=== PATIENT | female | born 1975 | race Two or more races ===

== ENCOUNTER 2016-09-26 23:59 | Emergency (ER) | payer OTHER | END 2016-09-27 03:02 | disposition home or self-care (01) | LOC: CED 23:59 | DX: F43.10 Post-traumatic stress disorder, unspecified (principal) | CPT/HCPCS: 99283 ==

== ENCOUNTER → 2016-09-27 22:40 | Emergency (ER) | payer OTHER | END | disposition left against medical advice (07) | LOC: CED 22:40 | DX: F32.9 Major depressive disorder, single episode, unspecified (principal); R53.1 Weakness | CPT/HCPCS: 99283 ==